=== PATIENT | female | born 1970 | race Two or more races ===

== ENCOUNTER 2018-01-01 06:52 | Outpatient (CLI) | payer OTHER | END 2018-01-01 12:24 | disposition home or self-care (01) | LOC: SONOGRAMA 06:52 → SONO 607 10:45 → SONOGRAMA 12:24 | DX: R10.11 Right upper quadrant pain (principal) ==

== ENCOUNTER 2019-03-11 08:12 | Outpatient (CLI) | payer OTHER | END 2019-03-11 08:18 | disposition home or self-care (01) | LOC: MAMO-SONO 08:12 | DX: R16.0 Hepatomegaly, not elsewhere classified (principal); Z12.31 Encounter for screening mammogram for malignant neoplasm of breast ==

== ENCOUNTER 2022-02-13 07:40 | Outpatient (CLI) | payer OTHER | END 2022-02-13 07:52 | disposition home or self-care (01) | LOC: MAMO-SONO 07:40 | PROVIDERS: ATTEND Specialist | DX: N60.11 Diffuse cystic mastopathy of right breast (principal); N60.12 Diffuse cystic mastopathy of left breast ==

== ENCOUNTER 2022-04-10 07:11 | Outpatient (CLI) | payer OTHER | END 2022-04-10 07:19 | disposition home or self-care (01) | LOC: RAD 07:11 | PROVIDERS: ATTEND Plastic Surgery Surgery of the Hand | DX: Z01.818 Encounter for other preprocedural examination (principal) ==

== ENCOUNTER 2023-06-05 07:57 | Outpatient (CLI) | payer OTHER | END 2023-06-05 08:16 | disposition home or self-care (01) | LOC: MRI 07:57 | PROVIDERS: ATTEND Internal Medicine Gastroenterology | DX: C25.9 Malignant neoplasm of pancreas, unspecified (principal) | CPT/HCPCS: 74181 ==

== ENCOUNTER 2023-06-29 08:13 | Outpatient (CLI) | payer OTHER | END 2023-06-29 08:22 | disposition home or self-care (01) | LOC: MAMO-SONO 08:13 | PROVIDERS: ATTEND Specialist | DX: N60.11 Diffuse cystic mastopathy of right breast (principal); N60.12 Diffuse cystic mastopathy of left breast; Z12.31 Encounter for screening mammogram for malignant neoplasm of breast; D13.4 Benign neoplasm of liver ==

== ENCOUNTER 2025-02-02 07:30 | Outpatient (CLI) | payer OTHER | END 2025-02-02 07:44 | disposition home or self-care (01) | LOC: MAMO-SONO 07:30 | PROVIDERS: ATTEND Specialist | DX: N60.11 Diffuse cystic mastopathy of right breast (principal); N60.12 Diffuse cystic mastopathy of left breast ==